=== PATIENT | male | born 1945 | race Two or more races ===

== ENCOUNTER 2017-01-20 10:57 | Inpatient (IN) | payer OTHER ==
--- NOTE | ~2017-01-20 | CN ---
Consultation Report [facility] [address] [place]. [address] NAME: YORDY LEONARD : 45 STATUS : ADM IN PAT#: [id number] AGE: 72 ADM/REG DATE : 01/20/17 MR#: [id number] REPORT SERV DATE: 01/20/17 DICTATED BY: DATE: REPORT STATUS : Draft TRANSCRIBED BY: MODL DATE: 01/20/17 CONSULTATION DATE OF CONSULTATION: 01/20/2017 REASON FOR CONSULTATION: CKD. HISTORY OF PRESENT ILLNESS: Mr. Leonard is a 72-year-old, [place] Citizen male, with a history of diabetes with neuropathy, no known retinopathy and duration per family is approximately six years, hypertension, who presented to [facility] with shortness of breath that was rather acute in onset prompting ER evaluation. He was found to be in CHF. He also then developed troponin elevation. They diuresed him and then transferred him to [facility] where he underwent heart catheterization today and was found to have multivessel coronary artery disease and needed bypass. On his arrival to [facility], his creatinine was 1.4, today is 1.5 pre cath and 1.4 again. We have been asked to see him in consultation. He does have proteinuria on his urinalysis, 100 mg/dL. His only urinary symptom is urinary hesitancy and urinary frequency. Currently, his breathing is better and he is chest pain free. PAST MEDICAL HISTORY: Coronary artery disease, hypertension, COPD, hyperlipidemia, diabetes x6 years with neuropathy. FAMILY MEDICAL HISTORY: No kidney disease. SOCIAL HISTORY: He is . Smokes a pack of cigarettes a day. No alcohol or illicit drug use. ALLERGIES: NONE. HOME MEDICATIONS: Include meloxicam, metformin, and atorvastatin. He is currently receiving fluids at 150 mL/hour x4 hours and he received a dose of azithromycin. 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 PHYSICAL EXAMINATION: VITAL SIGNS: Temp 97.7, blood pressure is 118/58, pulse 68, respiratory rate 19, and O2 saturation is 96% on 2 L. GENERAL: A pleasant, cooperative [place] Citizen male. He is awake, alert, in no acute distress. HEENT: Normocephalic and atraumatic. Conjunctivae clear. Sclerae anicteric. Oral mucosa is dry. NECK: Supple. I did not see any neck vein distention. No lymphadenopathy. LUNGS: Respirations are even and unlabored. He has diminished bases bilaterally. Consultation Report [address] [place]. [address] NAME: YORDY LEONARD : 45 STATUS : ADM IN PAT#: [id number] AGE: 72 ADM/REG DATE : 01/20/17 MR#: [id number] REPORT SERV DATE: 01/20/17 DICTATED BY: DATE: REPORT STATUS : Draft TRANSCRIBED BY: MODL DATE: 01/20/17 HEART: His heart rate is regular. I did not hear any murmur, rub, or gallop. ABDOMEN: Soft and nontender. Bowel sounds active. No masses. No hepatosplenomegaly. No bruits. No CVA tenderness. BACK: Within normal limits. EXTREMITIES: No unusual rashes or skin lesions. No edema. NEUROLOGIC: No focal deficits. PSYCHIATRIC: Mood and affect, pleasant appropriate. PERTINENT LABS AND X-RAYS: Sodium 141, potassium 3.9, chloride 103, CO2 of 26, BUN of 20, creatinine 1.4, calcium 8.9, glucose 109, magnesium 1.9, albumin 3.6. LFTs normal. Last troponin was up to 5.5, CPK of 368. Lipids; total cholesterol 150, LDL of 91, HDL of 48, triglycerides 55, and albumin of 3.2. Chest x-ray with a lung nodule in right upper lobe and Radiology reading it as a right upper lobe granuloma. Lactate 4.1. He had a CBC today with WBCs 9, H and H 12 and 40, platelets 260. ABG with a pH of 7.3, pCO2 of 30, pO2 of 92, bicarb is 22. His urinalysis was with 100 mg/dL of protein, and small amount of blood on dipstick. Under microscopic exam, he only had one red blood cells per high-power field. IMPRESSION: 1. Chronic kidney disease with proteinuria. 2. Myocardial infarction. 3. Coronary artery disease, multivessel in need of bypass. 4. Diabetes. 5. Hypertension. 6. Chronic obstructive pulmonary disease with ongoing tobacco use. PLAN/RECOMMENDATION: We will follow. He got hydration postcontrast. Metformin will be held. We will quantify urine and protein. Follow labs and urinary output. Avoid nephrotoxins. Would recommend Vas-Cath intraoperatively at time of bypass. We will follow along with you. Thank you for the consult. ADELA/SWETHA GLADYS Bell / [id number] CC: Karishma Medrano MARLAINE
--- NOTE | ~2017-01-20 | CN ---
Consultation Report [facility] [address] [place]. [address] NAME: YORDY SOLORIO : 45 STATUS : ADM IN PAT#: [id number] AGE: 72 ADM/REG DATE : 01/20/17 MR#: [id number] REPORT SERV DATE: 01/25/17 DICTATED BY: ATTILA GRIFFIN DATE: 01/25/17 REPORT STATUS : Draft TRANSCRIBED BY: MODL DATE: 01/25/17 INFECTIOUS DISEASE CONSULT DATE OF CONSULTATION: REASON FOR REFERRAL: Evaluation and treatment of possible tuberculosis. HISTORY OF PRESENT ILLNESS: The patient is a 72-year-old male who is originally from [place] but has lived in the [place] for many years. He has a history of diabetes mellitus and associated peripheral neuropathy. He has hyperlipidemia and a long history of tobacco abuse, in fact still smokes a half pack of cigarettes per day. He was at home with family, apparently doing well until 01/20 when he developed abrupt onset of shortness of breath and stated to his family "I cannot breathe." He was taken immediately to the emergency room where he was found to be very hypoxic, hypertensive with a blood pressure of 245/128. He was tachycardic. His chest x-ray was consistent with pulmonary edema. He showed evidence of an evolving myocardial infarction. It was noted also that he had an elevated white blood cell count along with the abnormal chest x-ray. The white count was 19,000 but with no bandemia. He had a normal procalcitonin but concern was raised for bacterial pneumonia. So he was started on Rocephin and azithromycin. He was transferred here to [facility] for cardiac cath and evaluation, which proved to show diffuse three-vessel disease. So was taken to surgery yesterday for coronary artery bypass grafting. He had that and is now recovering well from that. His chest x-ray cleared with diuresis. It was noted from the beginning that he had a calcified mass in the right upper lobe and because of that, a PPD was placed by Nephrology but it was not reassessed again until this morning, four days after placement and found to be positive at 15 mm of induration which I have confirmed on measuring it myself. He does not speak [place] well and there is no family present but per Dr. Donna Lomeli's excellent history and physical, the family who did speak [place] questioned closely about symptoms and he had no respiratory symptoms to suggest infection of any kind prior to this very abrupt onset of shortness of breath. No fevers, chills, night sweats, cough, hemoptysis, unexplained weight loss or anything that would suggest active tuberculosis. Whether he has been assessed for that or treated prophylactically in the past is unknown at this time since no family is present to interview. PAST MEDICAL HISTORY: Otherwise unknown or unremarkable. MEDICATIONS: The Rocephin and azithromycin he was started on were stopped. On the and , he received perioperative Ancef but is off antibiotics now. ALLERGIES: HE HAS NO KNOWN ANTIMICROBIAL ALLERGIES. SOCIAL HISTORY: He lives at home with a son and [id number]. He is . He does not work outside the home. Does smoke. No history of alcohol or substance abuse. FAMILY HISTORY: Noncontributory. Consultation Report [address] [place]. [address] NAME: YORDY SOLORIO : 45 STATUS : ADM IN [facility]#: [id number] AGE: 72 ADM/REG DATE : 01/20/17 MR#: [id number] REPORT SERV DATE: 01/25/17 DICTATED BY: ATTILA GRIFFIN DATE: 01/25/17 REPORT STATUS : Draft TRANSCRIBED BY: SWETHA DATE: 01/25/17 PHYSICAL EXAMINATION: GENERAL: Nontoxic, elderly, male in no acute distress. He wakes up, interacts, tends to nod everything. So I do not think he is really understanding much that he is asked. VITAL SIGNS: His temperature was normal at presentation at 98.5 and has been normal since then, 96.8 earlier this morning with a pulse of 58, respirations 14, blood pressure of 106/55, weight 74 kg. HEENT: Sclerae clear. No oral lesions. NECK: Without lymphadenopathy. LUNGS: Clear anteriorly. HEART: Regular rate and rhythm. Sternal incision is covered by surgical dressing and looks good. ABDOMEN: Soft, nontender. Positive bowel sounds. EXTREMITIES: Without clubbing, cyanosis, or edema. No skin lesions or rashes. LABORATORY DATA: His white blood cell count had decreased rapidly to normal, was 11.5 preoperatively yesterday, 16.3 today with a hematocrit of 32.4, platelets 153. Unremarkable differential. BUN and creatinine 21 and 1.4. Blood cultures taken at admission were negative. IMPRESSION: 1. 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 At this time, I feel this is old exposure/infection and he is showing no signs before admission or now of active tuberculosis. He does not need isolation. 2. Doubt any other infectious process is going on as well. I do not think his abnormal white count and chest x-ray at admission represented bacterial pneumonia but more likely all due to his cardiac disease. RECOMMENDATIONS: 1. No isolation necessary. 2. No antibiotics recommended. 3. Needs to be referred to the health department after his recovery from the CABG for prophylactic INH if that has never been done. 4. I will follow the patient with you. I appreciate very much your consulting on this patient. ALIYAH/SWETHA Attila Griffin M.D. / [id number] Consultation Report [address] [address] NAME: YORDY SOLORIO : 45 STATUS : ADM IN [facility]#: [id number] AGE: 72 ADM/REG DATE : 01/20/17 MR#: [id number] REPORT SERV DATE: 01/25/17 DICTATED BY: ATTILA GRIFFIN DATE: 01/25/17 REPORT STATUS : Draft TRANSCRIBED BY: SWETHA DATE: 01/25/17 CC: Karishma Medrano
--- NOTE | ~2017-01-20 | OP ---
Record Of Operation [facility] [address] [facility] [place]. [address] NAME: YORDY SOLORIO : 45 STATUS : ADM IN PAT#: [id number] AGE: 72 ADM/REG DATE : 01/20/17 MR#: [id number] REPORT SERV DATE: 01/25/17 DICTATED BY: CARLENE RUST DATE: 01/24/17 REPORT STATUS : Draft TRANSCRIBED BY: MODL DATE: 01/24/17 DATE OF PROCEDURE: 01/24/2017 PREOPERATIVE DIAGNOSES: 1. Coronary artery disease with non-ST elevation myocardial infarction. 2. Left carotid stenosis. 3. Chronic kidney disease stage III with acute worsening. 4. Hdc-prnjrsw-ntjwdwecp diabetes mellitus type 2. 5. Hypertension. 6. Hypercholesterolemia. 7. Tobacco abuse. 8. Recent respiratory failure. POSTOPERATIVE DIAGNOSES: 1. Coronary artery disease with non-ST elevation myocardial infarction. 2. Left carotid stenosis. 3. Chronic kidney disease stage III with acute worsening. 4. Sbq-xvvekba-osnbwbzry diabetes mellitus type 2. 5. Hypertension. 6. Hypercholesterolemia. 7. Tobacco abuse. 8. Recent respiratory failure. PROCEDURE PERFORMED: 1. Urgent coronary artery bypass grafting x5, left internal mammary artery placed to left anterior descending, reverse saphenous vein graft placed to the second diagonal, reverse saphenous vein graft placed to the third diagonal, reverse saphenous vein graft placed to the first obtuse marginal, reverse saphenous vein graft placed to the distal right coronary artery. 2. Left carotid endarterectomy using a saphenous vein angioplasty. 3. Endoscopic vein harvest, saphenous vein from bilateral thighs. 4. Transesophageal echocardiography. 5. Intraoperative EEG monitoring. SURGEON: Carlene Rust M.D. ASSISTANTS: Juan David Shahid, Dasia Cooper, and Tommy Bates. ANESTHESIA: General with Dr. Johnathan Chung M.D. SHEET TAKER: Lito Chow M.D. INDICATIONS: This is a 72-year-old male who has diabetes and long history of smoking. He had a recent episode of acute respiratory distress and was admitted to [facility] and placed on BiPAP. He was severely hypertensive. He was medically stabilized and underwent evaluation after his troponin levels were noted to be elevated. He underwent a Record Of Operation [facility] [address] [place]. [address] NAME: YORDY SOLORIO : 45 STATUS : ADM IN PAT#: [id number] AGE: 72 ADM/REG DATE : 01/20/17 MR#: [id number] REPORT SERV DATE: 01/25/17 DICTATED BY: CARLENE RUST DATE: 01/24/17 REPORT STATUS : Draft TRANSCRIBED BY: MODL DATE: 01/24/17 cardiac catheterization which demonstrated diffuse three-vessel coronary artery disease. The patient had elevated creatinine on admission and this later improved. After the patient was stabilized, we were asked to see the patient for possible urgent coronary artery bypass grafting secondary to severity of disease and recent non-ST elevation myocardial infraction. We discussed this operation with the patient family. After discussion of the operations, indications, risks, they wished to proceed. Preoperative discussion of about STS risk prediction was carried out. STS predicted risk of mortality of less than 5%, risk of morbidity and mortality in 15%. This was shared with the family. In addition, the patient underwent evaluation using carotid ultrasound. This demonstrated grade 3 left carotid stenosis with very high velocities. After examination of this study, we have felt that the patient should undergo prophylactic left carotid endarterectomy for suspected severe stenosis and this was discussed with the family also. FINDINGS AT OPERATION: 1. Cross-clamp time of 73 minutes, total pump time 89 minutes. 2. LAD was 1.5 mm moderately diseased vessel. A 2 mm LMA was anastomosed to it with good runoff. 3. The second diagonal was 1.5 mm mildly diseased. A 3.5 mm RSVG was anastomosed to it with good runoff. 4. The third diagonal was 1.75 mm and moderately diseased. A 3.5 mm RSVG was anastomosed to it with good runoff. 5. The first obtuse marginal was 1.75 mm and moderately diseased. A 3.5 mm RSVG was anastomosed to it with good runoff. 6. The distal right coronary artery was 2 mm and heavily diseased. A 3.5 mm RSVG was anastomosed to it with good runoff. 1-mm probe would pass through the bifurcation of the distal RCA into the PDA and posterolateral branch vessels. 7. The vein quality was good and all grafts had good Doppler signal at the end of the case. 8. Left carotid endarterectomy was performed. This vessel was heavily diseased with calcific plaque at the bifurcation extending into the proximal left internal carotid. After endarterectomy, a vein patch angioplasty was performed. An 8 mm shunt was used during the procedure. 9. Intraoperative EEG monitoring demonstrated no asymmetrical changes during the procedure. 10.STERLING at the end of the operation demonstrated improved ventricular function with no significant valvular pathology. Pathologic specimens include carotid endarterectomy plaque. DESCRIPTION OF PROCEDURE: The patient was brought to the operating suite. General anesthesia was induced and airway secured with an endotracheal tube. Lines secured by Anesthesia. Abreu catheter was placed. The patient's chest, abdomen, groin, and legs prepped with Hibiclens, ChloraPrep, along with the left neck. This were all draped in sterile fashion. STERLING probe was placed by Anesthesia and carried out in my attendance. The saphenous vein was harvested from bilateral thighs using endoscopic technique. Briefly, the vein was cut directly down upon through a 2 cm incision placed to the medial aspect of the right knee. Then, using VasoView trocars, the vessel was dissected from the surrounding Record Of Operation [address] [address] NAME: YORDY SOLORIO : 45 STATUS : ADM IN PAT#: [id number] AGE: 72 ADM/REG DATE : 01/20/17 MR#: [id number] REPORT SERV DATE: 01/25/17 DICTATED BY: CARLENE RUST DATE: 01/24/17 REPORT STATUS : Draft TRANSCRIBED BY: SWETHA DATE: 01/24/17 subcutaneous tissue and fat. The side branches were identified, ligated, and divided with cautery. Once adequate length of vein had been dissected, a counter incision made up in the groin. The vein was ligated, divided, and brought through the knee incision. Unfortunately, below the level of the knee, the vein was unusually small. Therefore, the left greater saphenous vein was harvested in an identical fashion. This vein was also of good quality, and when this vein was excised, the leg wounds were made hemostatic and closed in layers of absorbable suture and skin closed in subcuticular fashion. Simultaneously, a left carotid was performed. EEG monitoring were attached at beginning of the operation and used for the endarterectomy portion of the case. Oblique left neck incision made along the anterior border of the sternocleidomastoid and carried through the subcutaneous tissue and the platysma muscle. The sternocleidomastoid muscle was retracted laterally. The jugular vein was identified. This was also retracted laterally. The carotid sheath was then identified and this was opened from the common carotid through the bifurcation distally into the distal end up along the distal internal carotid artery. Heparin was administered by Anesthesia for the endarterectomy. At the level of bifurcation, we identified two branches of the external carotid artery including the superior thyroidal and pharyngeal arteries and these were controlled. The hypoglossal nerve was identified and this was preserved. Vessel loops were placed around the carotid vessels. The vessel loops were secured. Arteriotomy was made in the proximal common carotid artery extending through the bifurcations into the distal internal carotid artery. A #8 mm shunt was placed in the distal internal carotid and backflushed and placed in the common carotid artery and secured. Then endarterectomy was carried out. Endarterectomy plane was selected at the bifurcation and carried proximally to the limit of the arteriotomy where the plaque was transected. We then continued the same plane of dissection distally and an eversion type endarterectomy of the external carotid was performed. Once this was accomplished, we continued our plane of dissection distally to where the plaque feathered nicely past the level of significant disease in the distal internal carotid artery. There was one edge of this transition zone, it had a small lip to it and this was secured down to the adventitial layer of the distal internal carotid with a single 8-0 Prolene tacking suture. We then spent a significant amount of time clearing the new intima of all fibrin stranding and plaque. When this was completed, the external carotid was backflushed in the field and forward flushed with heparinized saline. Next, the vein from the left thigh was brought to the field in the more proximal portion, this vein graft was used for the vein patch angioplasty. The vein was transected and trimmed for the vein patch angioplasty. The vein was then sewn into place with a running suture of 7-0 Prolene. Near completion of sewing in the vein patch, the 8 mm [place] shunt was removed and the internal and common carotid vessels flushed in the field and then flushed with heparinized saline. We finished sewing in the patch, and then as the suture was being tied, flow was preferentially directed from the common carotid into the external carotid system for five heartbeats. Flow was then established to both external and internal carotids. Record Of Operation [facility] [address] [place]. [address] NAME: YORDY SOLORIO : 45 STATUS : ADM IN PAT#: [id number] AGE: 72 ADM/REG DATE : 01/20/17 MR#: [id number] REPORT SERV DATE: 01/25/17 DICTATED BY: CARLENE RUST DATE: 01/24/17 REPORT STATUS : Draft TRANSCRIBED BY: MODAyush DATE: 01/24/17 Meticulous hemostasis was then obtained. Intraoperative EEG monitoring demonstrated no asymmetrical changes during the procedure. Once hemostasis was assured, the wound was packed loosely with 4 x 4 gauze and tacked closed. We then turned our attention back toward the heart. Midline sternal incision made in the sternum with a saw. The left hemithorax was elevated and the endothoracic fascia. Full endothoracic fascia was incised. Side branch of the NEYMAR were clipped and divided. Once the NEYMAR was completely dissected, the patient was anticoagulated with heparin and chest tube placed the left pleural cavity. 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 The NEYMAR was clipped distally and divided. There was good flow through the NEYMAR and its pedicle was infiltrated with papaverine. Next, the Rudy retractor was placed in the pericardium from the innominate vein. The diaphragm was T'd and tacked to side of the chest wall. Cannulation pursestring sutures were placed and cannulation care routine manner. A retrograde cardioplegia cannula was placed in the coronary sinus. When all was in readiness, the patient was placed on cardiopulmonary bypass. The distal targets were marked out on the lung and heart as described in the findings. Then, a heart support was placed. The aorta was crossclamped and an initial dose cold blood cardioplegia solution was given in a combination of antegrade and retrograde fashion, and then in a retrograde manner following proximal anastomoses. Following the first dose of cardioplegia, the heart was positioned for the distal RCA graft. Arteriotomy was made. The vein graft was changed and anastomosed it with 7-0 Prolene. The vein graft was measured back to the right side of the ascending aorta where it was divided. We then positioned the heart for the obtuse marginal graft. Another arteriotomy was made in the vein graft to anastomosed it with 7-0 Prolene. This vein graft was then measured back to the left side of the ascending aorta where it was divided. Next, the proximal ends of the two vein grafts were anastomosed to 4.5 mm punch aortotomies with a 6-0 Prolene. Another dose of cardioplegia was given and heart was positioned for the second diagonal graft. Arteriotomy was made and the vein graft anastomosed it with 7-0 Prolene. This vein graft was measured back to the left side of the ascending aorta where it was divided. We then positioned the heart for the third diagonal graft. Another arteriotomy was made in the vein graft to anastomose it with 7-0 Prolene. This vein graft was measured back to the left side of the ascending aorta root where it was divided. Next, proximal ends of these two vein grafts were anastomosed to 4.5 mm punch aortotomies with 6-0 Prolene. Another dose of cardioplegia was given and the heart was positioned for the LAD graft. Warming was begun. Arteriotomy was made in the mid LAD. The NEYMAR was brought out of the left chest through a notch in the pericardium over the pulmonary artery. The NEYMAR was opened and anastomosed to the LAD with running suture of 8-0 Prolene. The endothoracic fascia was tacked to epicardium. The patient was placed in Trendelenburg and final dose of warm blood cardioplegia was given Record Of Operation [facility] [address] [place]. [address] NAME: YORDY SOLORIO : 45 STATUS : ADM IN [facility]#: [id number] AGE: 72 ADM/REG DATE : 01/20/17 MR#: [id number] REPORT SERV DATE: 01/25/17 DICTATED BY: CARLENE RUST DATE: 01/24/17 REPORT STATUS : Draft TRANSCRIBED BY: MODL DATE: 01/24/17 in a retrograde fashion. Ventricular and atrial pacing wires were placed. Following the last dose cardioplegia and deairing of the aorta, the aortic cross clamp was removed. The distal and proximal anastomoses were inspected and made hemostatic. Doppler demonstrated good flow through the grafts. The heart resumed a slow sinus rhythm and was paced atrially at a rate of 80. Ventilation was begun. When the heart demonstrated good contractility, it was allowed to fill and eject. When deairing was completed, the patient was taken out of Trendelenburg and the ascending aortic vent removed and these pursestring sutures tied and reinforced. The patient was weaned from cardiopulmonary bypass with minimal inotropic support. The venous cannulas were removed and these pursestring sutures tied. STERLING examination demonstrated good ventricular function with no significant valvular pathology. Protamine was administered by Anesthesia, and following a period of hemodynamic stability, the aortic cannula was removed and these pursestring sutures tied and reinforced. The patient continued do well and chest irrigated copiously with saline. Meticulous hemostasis was obtained. Hemasorb was placed along the cut edge of the sternum. Once hemostasis was assured, the pericardium was draped over the anterior surface of the heart and tacked into position. Doppler demonstrated good flow through the grafts following protamine administration. Then, chest tubes were placed and the sternum reapproximated with 8 sternal wires. The clavipectoral fascia and linea alba were closed with #1 Stratafix and subcutaneous tissue closed with 2-0 Stratafix. The skin was closed in subcuticular fashion. The suture in the left neck incision was divided and this wound was irrigated and Doppler demonstrated good flow, continued in the internal carotid artery on this side. Then, the deep cervical fascia was reapproximated over the carotid system. The platysma muscle was reapproximated and the subcutaneous tissue. The skin was closed in subcuticular fashion. The patient tolerated the procedure well. There were no complications. Sponge and needle counts were correct. DISPOSITION: The patient left intubated and sedated and transported to the intensive care unit in stable condition. LUIS/SWETHA Carlene Rust M.D. / [id number] CC: Nicole Rosales M.D. Record Of Operation [address] [address] NAME: OSMINYORDY Mathews : 45 STATUS : ADM IN [facility]#: [id number] AGE: 72 ADM/REG DATE : 01/20/17 MR#: [id number] REPORT SERV DATE: 01/25/17 DICTATED BY: CARLENE RUST DATE: 01/24/17 REPORT STATUS : Draft TRANSCRIBED BY: SWETHA DATE: 01/24/17 ALISHA MORENO M.D.
--- NOTE | ~2017-01-20 | DS ---
Discharge Summary [facility] [address] [place]. [address] NAME: YORDY SOLORIO : 45 STATUS : DIS IN [facility]#: [id number] AGE: 72 ADM/REG DATE : 01/20/17 MR#: [id number] REPORT SERV DATE: 02/01/17 DICTATED BY: NAKUL BELL DATE: 02/01/17 REPORT STATUS : Draft TRANSCRIBED BY: MODL DATE: 02/01/17 ADMISSION DATE: 01/20/2017 DISCHARGE DATE: 01/31/2017 Date admission, initially 01/20/2017 at [facility], transferred on 01/21/2017. DISCHARGE DIAGNOSES: 1. Acute myocardial infarction requiring CABG. 2. Acute respiratory distress with hypoxia secondary to myocardial infarction. 3. Acute flash pulmonary edema secondary to myocardial infarction. 4. Hypertension. 5. Elevated lactate. 6. Diabetes type 2. 7. Active smoking history. 8. Leukocytosis. 9. Proteinuria. 10.Possible chronic obstructive pulmonary disease. 11.Urinary retention and inactive tuberculosis. CONSULTATIONS: CT Surgery for CABG, Dr. Rust. PROCEDURES: Urgent coronary bypass grafting x5, left carotid endarterectomy using saphenous vein. ADDITIONAL CONSULTATIONS: ID for possible TB. DISCHARGE FOLLOWUP: CT Surgery, Health Department, PCP, Cardiology. DISCHARGE MEDICATIONS: Amlodipine 10 mg one tab p.o. daily, aspirin 81 mg one tab p.o. daily, atorvastatin 40 mg one tab p.o. q.h.s., Coreg 3.125 mg one tab p.o. b.i.d., Plavix 75 mg one tab p.o. daily, guaifenesin over the counter as needed for cough, lisinopril 5 mg one tab p.o. daily, multivitamin over the counter, Protonix 20 mg one tab p.o. before breakfast, Senokot two tabs p.o. daily, metformin 1000 mg one tab p.o. b.i.d., [place] 10/325 mg one tab p.o. as needed half to one tab p.o. HOSPITAL COURSE: Please see H and P for complete details of HPI, interim summary by Dr. Sammy Prescott for interim course. Briefly, this is a 72-year-old male admitted for shortness of breath, acute flash pulmonary edema, chest tightness, hypoxia, elevated lactate with history of smoking, diabetes non-insulin dependent, who presented at [facility] with concerns for coronary artery disease, evaluated by Dr. Chow, arranged for transport to [facility], at which time, the patient was noted to have multi-vessel disease. The patient was evaluated by Dr. Rust and underwent five-vessel urgent coronary bypass grafting, left carotid endarterectomy, STERLING, endoscopic vein harvest for NSTEMI. The patient tolerated the procedure well. Was able to be weaned off oxygen. Was encouraged smoking cessation. Postoperatively, the patient did have mild urinary retention, which did resolve after retrial with Abreu and was able to be discontinued without Abreu. The patient has had Discharge Summary [address] [place]. [address] NAME: YORDY SOLORIO : 45 STATUS : DIS IN PAT#: [id number] AGE: 72 ADM/REG DATE : 01/20/17 MR#: [id number] REPORT SERV DATE: 02/01/17 DICTATED BY: NAKUL BELL DATE: 02/01/17 REPORT STATUS : Draft TRANSCRIBED BY: MODL DATE: 02/01/17 transient leukocytosis throughout hospital stay, but has continued to improve prior to discharge. Will need to have followup for this. The patient was initiated on beta-eduarda, AZIZA inhibitor, aspirin, statin, Plavix and also underwent diabetic education and will need close followup for these. Prior to discharge, the patient was ambulating with standby assist. Had very strong and close family support. Eager to return home. He will follow up with his PCP for blood pressure, diabetes, hyperlipidemia, smoking. We will need to have full workup for COPD once recovered from coronary disease and procedure. All questions were answered with the patient at bedside. DDN/MODL Nakul Bell MD / [id number] CC: MD ALISHA Myers
--- NOTE | ~2017-01-20 | CN ---
Consultation Report [facility] [address] [place]. [address] NAME: YORDY SOLORIO : 45 STATUS : ADM IN PAT#: [id number] AGE: 72 ADM/REG DATE : 01/20/17 MR#: [id number] REPORT SERV DATE: 01/21/17 DICTATED BY: SERGEY GAMEZ DATE: 01/21/17 REPORT STATUS : Draft TRANSCRIBED BY: MODL DATE: 01/21/17 CONSULTATION DATE OF CONSULTATION: 01/20/2017 REASON FOR CONSULTATION: Three-vessel coronary artery disease, consideration for coronary artery bypass grafting at this admission. CHIEF COMPLAINT: "I could not get my breath after I went to bed Tuesday night." HISTORY OF PRESENT ILLNESS: This is a pleasant 72-year-old gentleman of ethnicity, who was at home last Tuesday night preparing to fall asleep. He had sudden onset of severe dyspnea and shortness of breath, and this was accompanied by some sweating. He denies any syncope or near syncope. He denies any wheezing. He denies any cough. He had no history of recent illness. He denies having any prior cardiac history. He was taken to the emergency department and prior to that, given two aspirins by his granddaughter. At the emergency department, he was found to have an oxygen saturation of 72%, chest x-ray consistent with pulmonary edema, and elevated BNP as well as abnormal EKG and elevated troponin I. He was treated with Lasix, nitroglycerin paste, and was given Solu Medrol 125 mg IV, was also treated with BiPAP. He had improvement in his symptoms. He was transferred to [facility] and underwent Cardiology evaluation. This culminated in coronary arteriogram yesterday afternoon, which showed flow-limiting three-vessel coronary artery disease. Subsequent echocardiogram did not show any valvulopathy, did indicate reduced left ventricular function with ejection fraction of 45%. We were asked to see for urgent coronary artery bypass grafting. PRIOR MEDICAL HISTORY: 1. Significant for type 2 diabetes mellitus, non-insulin dependent. 2. Hyperlipidemia. 3. Cataracts. 4. Diabetic neuropathy. 5. Tobacco abuse. 6. Remote history of alcohol use. PRIOR SURGICAL HISTORY: Significant only for cataract excision. ALLERGIES: NONE NOTED. MEDICATIONS AT HOME: Include atorvastatin 20 mg p.o. at bedtime, meloxicam 7.5 mg daily, and metformin 1000 mg p.o. b.i.d. FAMILY HISTORY: Significant for diabetes mellitus. No history of coronary disease. Consultation Report [place] [id number] [facility] [place]. [address] NAME: YORDY SOLORIO : 45 STATUS : ADM IN PAT#: [id number] AGE: 72 ADM/REG DATE : 01/20/17 MR#: [id number] REPORT SERV DATE: 01/21/17 DICTATED BY: SERGEY GAMEZ DATE: 01/21/17 REPORT STATUS : Draft TRANSCRIBED BY: SWETHA DATE: 01/21/17 SOCIAL HISTORY: He is , has three sons and one daughter, who are adults, he is retired from working at [employer] as a [employer] in [place]. He tells me, he has smoked since age [age] up to two packs per day, now about twelve cigarettes per day. He has a remote history of alcohol use, but none for the last ten years. REVIEW OF SYSTEMS: Complete review of systems was obtained from the patient via his grandson, who served as an wholesaler. GENERAL: He denies any recent weight change, fevers, chills, night sweats, or malaise. ENT: Positive for diminished auditory acuity in the left ear and occasional tinnitus, cataracts, upper and lower dentures. RESPIRATORY: Positive for occasional dry nonproductive cough, which he attributes to smoking. Negative for wheezing. Negative for hemoptysis. CV: Negative for paroxysmal nocturnal dyspnea, chest pain, palpitations, or heart murmur. Denies any prior history of heart problems or chest pain. GI: Negative. : Negative. ENDOCRINE: Positive for his diabetes mellitus, treated with metformin. HEME/ONC: Negative for tendency towards easy bruising or free bleeding. Negative for blood clots. Negative for cancer. MUSCULOSKELETAL: Negative. INTEGUMENTARY: Negative for lesions, masses, rashes, or nonhealing sores. LYMPHATIC: Negative for any swollen lymph nodes or lower extremity edema. Otherwise, negative or as above. NEURO: No history of stroke or TIA PHYSICAL EXAMINATION: GENERAL: He is a pleasant elderly gentleman, in no acute distress. His height is 162.56 cm. Weight 71.29 kg. VITAL SIGNS: Blood pressure 133/60, temperature 97.3, pulse 62 regular, respirations 18 regular and unlabored, saturation is 99% on 3 L nasal cannula. HEENT: Normocephalic, atraumatic. Full head of hair. Pupils equal, round, reactive to light and accommodation, sclerae clear, conjunctivae pink. Oral and buccal mucosa pink and moist. No lesions, masses. He has upper and lower dentures in place. Mallampati class 3 airway. NECK: Supple. No restricted range of motion, bilateral carotid bruits that are easily heard. No neck vein distention. No adenopathy. CHEST: Clear to auscultation, no use of accessory muscles, no chest wall tenderness or deformity. BREASTS: Not examined. CV: Regular rate and rhythm without murmur or rub. He has palpable symmetric central and peripheral pulses, no clubbing, cyanosis, or edema. No lower extremity varicosities. ABDOMEN: Soft, obese, nontender with normoactive bowel sounds. No hepatosplenomegaly. /RECTAL: Declined. MUSCULOSKELETAL: No kyphoscoliosis. No asymmetry. Consultation Report [address] [place]. [address] NAME: YORDY SOLORIO : 45 STATUS : ADM IN [facility]#: [id number] AGE: 72 ADM/REG DATE : 01/20/17 MR#: [id number] REPORT SERV DATE: 01/21/17 DICTATED BY: SERGEY GAMEZ DATE: 01/21/17 REPORT STATUS : Draft TRANSCRIBED BY: SWETHA DATE: 01/21/17 NEUROLOGIC: He is alert and oriented to day, date, place, and situation and president, no tremors, no abnormal movements, no difficulty with muscle strength or ambulation. Diminished sensation in both feet. DATA: EKG showing sinus rhythm, left atrial enlargement and ST-T wave changes in the anterior and lateral leads. Urinalysis positive for hematuria and glucosuria at [facility]. Hemoglobin A1c elevated at 7.2. Echocardiogram showing ejection fraction of 45%, no valvulopathy. His coronary arteriogram showing 3-vessel flow-limiting coronary artery disease with total occlusion of the distal right coronary artery, LVEDP was 10. Carotid ultrasound showing category 2 disease in the right internal carotid artery, category 3 disease, that is 70% to 99% stenosis by velocities in the left internal carotid artery. LABORATORIES: His lipid panel unremarkable. Electrolytes, sodium 140, potassium 3.6, chloride 103, CO2 of 27, BUN 27, creatinine 1.3, glucose 133. CBC elevated WBCs at 17.8, hemoglobin 11.8 g, hematocrit 34.8%, platelets 248,000. IMPRESSION: 1. Three-vessel flow-limiting coronary artery disease in a 72-year-old gentleman with mildly diminished left ventricular function and recent [id number] myocardial infarction. 2. Significant carotid artery disease with no history of stroke, transient ischemic attack, or other referable symptoms. 3. Chronic kidney disease versus acute kidney injury, followed currently by Nephrology. 4. Hyperlipidemia, treated. 5. Hypertension, treated. 6. Diabetic neuropathy. PLAN: 1. I talked with the patient today with his grandson serving as an wholesaler as the patient speaks very little [place], but understands some. I talked with the patient and his family about possible coronary artery bypass grafting, usual perioperative course, indications, benefits, and risks. Serious risks include but are not limited to, things such as bleeding, need for blood or blood product transfusion and their attendant risks, damage to the kidneys including kidney failure and dialysis, infection including deep sternal infection, mediastinitis, damage to the liver or the lungs, heart attack, stroke, abnormal heart rhythm, and even . 2. We talked also about possible left carotid endarterectomy given his carotid stenosis. We talked about the usual perioperative course, and risks including risk of bleeding, pain, difficulty swallowing, and stroke. Using Society of thoracic Surgeons database, risks related to urgent coronary artery bypass grafting were calculated at risk of mortality 2.86%, morbidity or mortality 27.99%. This is discussed with the patient and his family today. 3. The patient will be seen over the weekend by Dr. Rust, and tentative plans for coronary artery bypass grafting early next week are entertained. We appreciate very much the opportunity to participate in this gentleman's care. Consultation Report [place] [address] [place]. [address] NAME: YORDY SOLORIO : 45 STATUS : ADM IN [facility]#: [id number] AGE: 72 ADM/REG DATE : 01/20/17 MR#: [id number] REPORT SERV DATE: 01/21/17 DICTATED BY: SERGEY GAMEZ DATE: 01/21/17 REPORT STATUS : Draft TRANSCRIBED BY: MODL DATE: 01/21/17 MSL/MODL Sergey Gamez N.P. / [id number] CC: Karishma Medrano
[~2017-01-20 10:57] MED LIST: GLUCOPHAGE1000 MG PO; LIPITOR20; MOBIC7.5 PO
[2017-01-20 14:25] LABS: A/G RATIO 0.9 (0.7-1.9); ALBUMIN 3.6 G/DL (3.5-5.0); ALKALINE PHOSPHATASE 105 U/L (45-117); BUN (BLOOD UREA NITROGEN) 20 MG/DL (6-23); CALCIUM, SERUM 8.9 MG/DL (8.5-10.4); CHLORIDE, SERUM 103 MMOL/L (96-112); CO2 (CARBON DIOXIDE) 26 MMOL/L (24-34); CPK 368 U/L (0-200); GFR AFRICAN AMERICAN 58 ML/MIN (>=60); GFR NON AFRICAN AMERICAN 50 ML/MIN (>=60); GLOBULIN 3.9 G/DL (2.5-4.1); GLUCOSE, SERUM 109 MG/DL (60-99); POTASSIUM, SERUM 3.9 MMOL/L (3.5-5.3); SGOT(AST) 47 U/L (5-40); SGPT(ALT) 18 U/L (5-65); SODIUM, SERUM 141 MMOL/L (135-148); TOTAL BILIRUBIN 0.4 MG/DL (0-1.2); TOTAL PROTEIN 7.5 G/DL (6.0-8.5)
[2017-01-20 14:26] LABS: TROPONIN I 5.54 NG/ML (<0.05)
[2017-01-20 14:28] LABS: CK-MB 29.6 NG/ML; FREE T4 0.79 NG/DL (0.76-1.46)
[2017-01-20 20:11] LABS: CREATININE (RANDOM URINE) 19.9 MG/DL; CREATININE, URINE 19.9 MG/DL; MICROALBUMIN, RANDOM URINE 2.2 MG/DL
[2017-01-21 05:38] LABS: BASOPHILS 0.1 %; BASOPHILS ABSOLUTE 0.01 10/3/uL (0.0-0.16); EOSINOPHILS 0.1 %; EOSINOPHILS ABSOLUTE 0.01 10/3/uL (0.0-0.53); HEMOGLOBIN 11.8 g/dL (13.6-17.8); IMMATURE GRANULOCYTES 0.3 %; IMMATURE GRANULOCYTES ABSOLUTE 0.06 10/3/uL (0.0-0.11); LYMPHOCYTES 14.7 %; LYMPHOCYTES ABSOLUTE 2.62 10/3/uL (0.67-4.30); MEAN CORPUSCULAR HEMOGLOB 31.5 pg (26.0-34.0); MEAN CORPUSCULAR VOLUME 92.8 fL (80-100); MEAN PLATELET VOLUME 10.2 fL (9.2-13.0); MONOCYTES ABSOLUTE 1.07 10/3/uL (0.21-1.20); NEUTROPHILS 78.8 %; NEUTROPHILS ABSOLUTE 14.02 10/3/uL (2.02-8.40); PLATELET COUNT 248 10/3/uL (150-400); RBC DISTRIBUTION WIDTH 14.9 % (12.0-16.0); RED CELL COUNT 3.75 10/6/uL (4.7-6.1)
[2017-01-21 05:43] LABS: HEMATOCRIT 34.8 % (40.0-51.0); MANUAL DIFF NO %; MEAN CORPUS HGB CONC 33.9 g/dL (32.0-36.0); WHITE BLOOD CELLS 17.8 10/3/uL (4.5-10.5)
[2017-01-21 05:55] LABS: A/G RATIO 0.9 (0.7-1.9); ALBUMIN 3.1 G/DL (3.5-5.0); CALCIUM, SERUM 8.4 MG/DL (8.5-10.4); CHLORIDE, SERUM 103 MMOL/L (96-112); CO2 (CARBON DIOXIDE) 27 MMOL/L (24-34); GFR AFRICAN AMERICAN 63 ML/MIN (>=60); GFR NON AFRICAN AMERICAN 55 ML/MIN (>=60); GLOBULIN 3.4 G/DL (2.5-4.1); PHOSPHORUS, SERUM 3.1 MG/DL (2.5-4.5); POTASSIUM, SERUM 3.6 MMOL/L (3.5-5.3); SGOT(AST) 34 U/L (5-40); SGPT(ALT) 16 U/L (5-65); SODIUM, SERUM 140 MMOL/L (135-148); TOTAL BILIRUBIN 0.5 MG/DL (0-1.2); TOTAL PROTEIN 6.5 G/DL (6.0-8.5)
[2017-01-21 05:59] LABS: ALKALINE PHOSPHATASE 80 U/L (45-117); BUN (BLOOD UREA NITROGEN) 27 MG/DL (6-23); GLUCOSE, SERUM 133 MG/DL (60-99)
[2017-01-21 06:06] LABS: T PROTEIN (ELECT)(NOT OR 6.3 G/DL (6.0-8.5)
[2017-01-21 06:21] LABS: INTACT PTH (ICMA) 217.3 PG/ML (10.0-65.0)
[2017-01-21 10:22] LABS: A/G 1.48 RATIO (0.9-2.10); ALB RELATIVE % 59.7 % (60.0-89.0); ALBUMIN (ELECTRO) 3.76 GM/DL (3.2-5.5); ALPHA 1 (ELECTRO) 0.21 GM/DL (0.1-0.4); ALPHA 1 RELAT % (NOT ORD) 3.3 % (1.0-4.0); ALPHA 2 (ELECTRO) 0.67 GM/DL (0.5-1.10); ALPHA 2 RELAT % 10.6 % (4.5-26.0); BETA GLOBULIN (SPE) 0.62 GM/DL (0.60-1.30); BETA RELATIVE % 9.9 % (9.0-22.0); GAMMA GLOBULIN (SPE) 1.04 G/DL (0.70-1.60); GAMMA RELAT % 16.5 % (6.0-22.0)
[2017-01-22 03:25] LABS: BASOPHILS 0.2 %; BASOPHILS ABSOLUTE 0.03 10/3/uL (0.0-0.16); EOSINOPHILS ABSOLUTE 0.12 10/3/uL (0.0-0.53); HEMATOCRIT 36.9 % (40.0-51.0); HEMOGLOBIN 12.6 g/dL (13.6-17.8); IMMATURE GRANULOCYTES 0.2 %; IMMATURE GRANULOCYTES ABSOLUTE 0.03 10/3/uL (0.0-0.11); LYMPHOCYTES 35.5 %; LYMPHOCYTES ABSOLUTE 4.28 10/3/uL (0.67-4.30); MEAN CORPUS HGB CONC 34.1 g/dL (32.0-36.0); MEAN CORPUSCULAR HEMOGLOB 31.6 pg (26.0-34.0); MEAN CORPUSCULAR VOLUME 92.5 fL (80-100); MEAN PLATELET VOLUME 10.3 fL (9.2-13.0); MONOCYTES 7.5 %; MONOCYTES ABSOLUTE 0.91 10/3/uL (0.21-1.20); NEUTROPHILS 55.6 %; NEUTROPHILS ABSOLUTE 6.69 10/3/uL (2.02-8.40); PLATELET COUNT 267 10/3/uL (150-400); RBC DISTRIBUTION WIDTH 14.6 % (12.0-16.0); RED CELL COUNT 3.99 10/6/uL (4.7-6.1); WHITE BLOOD CELLS 12.1 10/3/uL (4.5-10.5)
[2017-01-22 03:26] LABS: MANUAL DIFF NO %
[2017-01-22 03:40] LABS: BUN (BLOOD UREA NITROGEN) 27 MG/DL (6-23); CALCIUM, SERUM 8.5 MG/DL (8.5-10.4); CHLORIDE, SERUM 100 MMOL/L (96-112); CO2 (CARBON DIOXIDE) 32 MMOL/L (24-34); CREATININE 1.34 MG/DL (0.70-1.30); GFR AFRICAN AMERICAN 61 ML/MIN (>=60); GFR NON AFRICAN AMERICAN 53 ML/MIN (>=60); GLUCOSE, SERUM 143 MG/DL (60-99); POTASSIUM, SERUM 3.5 MMOL/L (3.5-5.3); SODIUM, SERUM 139 MMOL/L (135-148)
[2017-01-23 01:06] LABS: BASOPHILS 0.3 %; BASOPHILS ABSOLUTE 0.04 10/3/uL (0.0-0.16); EOSINOPHILS ABSOLUTE 0.23 10/3/uL (0.0-0.53); HEMATOCRIT 39.8 % (40.0-51.0); HEMOGLOBIN 13.8 g/dL (13.6-17.8); IMMATURE GRANULOCYTES 0.3 %; IMMATURE GRANULOCYTES ABSOLUTE 0.03 10/3/uL (0.0-0.11); LYMPHOCYTES 34.4 %; LYMPHOCYTES ABSOLUTE 3.93 10/3/uL (0.67-4.30); MEAN CORPUS HGB CONC 34.7 g/dL (32.0-36.0); MEAN CORPUSCULAR HEMOGLOB 31.7 pg (26.0-34.0); MEAN CORPUSCULAR VOLUME 91.5 fL (80-100); MONOCYTES 8.3 %; MONOCYTES ABSOLUTE 0.95 10/3/uL (0.21-1.20); NEUTROPHILS 54.7 %; NEUTROPHILS ABSOLUTE 6.25 10/3/uL (2.02-8.40); PLATELET COUNT 290 10/3/uL (150-400); RBC DISTRIBUTION WIDTH 13.8 % (12.0-16.0); RED CELL COUNT 4.35 10/6/uL (4.7-6.1); WHITE BLOOD CELLS 11.4 10/3/uL (4.5-10.5)
[2017-01-23 01:12] LABS: MANUAL DIFF NO %
[2017-01-23 01:24] LABS: CALCIUM, SERUM 8.7 MG/DL (8.5-10.4); CHLORIDE, SERUM 96 MMOL/L (96-112); CO2 (CARBON DIOXIDE) 31 MMOL/L (24-34); CREATININE 1.25 MG/DL (0.70-1.30); GFR AFRICAN AMERICAN 66 ML/MIN (>=60); GFR NON AFRICAN AMERICAN 57 ML/MIN (>=60); GLUCOSE, SERUM 145 MG/DL (60-99); POTASSIUM, SERUM 3.2 MMOL/L (3.5-5.3); SODIUM, SERUM 136 MMOL/L (135-148)
[2017-01-23 01:30] LABS: BUN (BLOOD UREA NITROGEN) 22 MG/DL (6-23)
[2017-01-23 17:44] LABS: ASCORBIC ACID (UR NOT ORDER) NEG (NEG); BILIRUBIN, URINE NEGATIVE (NEG); KETONE, URINE NEGATIVE (NEG); LEUKOCYTE ESTERASE(NOT OR NEG (NEG); WBC (NOT ORDERED) (RFLEX) 1 (0-5)
[2017-01-24 03:55] LABS: BASOPHILS 0.2 %; BASOPHILS ABSOLUTE 0.02 10/3/uL (0.0-0.16); EOSINOPHILS 2.4 %; EOSINOPHILS ABSOLUTE 0.27 10/3/uL (0.0-0.53); HEMATOCRIT 39.8 % (40.0-51.0); IMMATURE GRANULOCYTES 0.3 %; IMMATURE GRANULOCYTES ABSOLUTE 0.03 10/3/uL (0.0-0.11); LYMPHOCYTES ABSOLUTE 3.56 10/3/uL (0.67-4.30); MEAN CORPUS HGB CONC 35.2 g/dL (32.0-36.0); MEAN CORPUSCULAR HEMOGLOB 32.3 pg (26.0-34.0); MEAN CORPUSCULAR VOLUME 91.7 fL (80-100); MEAN PLATELET VOLUME 9.8 fL (9.2-13.0); MONOCYTES 9.1 %; MONOCYTES ABSOLUTE 1.04 10/3/uL (0.21-1.20); NEUTROPHILS ABSOLUTE 6.56 10/3/uL (2.02-8.40); PLATELET COUNT 282 10/3/uL (150-400); RBC DISTRIBUTION WIDTH 13.8 % (12.0-16.0); RED CELL COUNT 4.34 10/6/uL (4.7-6.1); WHITE BLOOD CELLS 11.5 10/3/uL (4.5-10.5)
[2017-01-24 03:56] LABS: MANUAL DIFF NO %
[2017-01-24 04:01] LABS: INTERNATIONAL NORMAL RATI 1.1 UNITS (-); PROTIME (NOT ORD) 14.2 SEC (12.0-14.5)
[2017-01-24 04:02] LABS: PARTIAL THROMBO TIME 105.1 SEC (22.5-37.2)
[2017-01-24 04:05] LABS: A/G RATIO 0.9 (0.7-1.9); ALBUMIN 3.5 G/DL (3.5-5.0); BUN (BLOOD UREA NITROGEN) 23 MG/DL (6-23); CALCIUM, SERUM 8.8 MG/DL (8.5-10.4); CHLORIDE, SERUM 100 MMOL/L (96-112); CO2 (CARBON DIOXIDE) 28 MMOL/L (24-34); CREATININE 1.27 MG/DL (0.70-1.30); GFR AFRICAN AMERICAN 65 ML/MIN (>=60); GFR NON AFRICAN AMERICAN 56 ML/MIN (>=60); GLOBULIN 3.8 G/DL (2.5-4.1); GLUCOSE, SERUM 153 MG/DL (60-99); POTASSIUM, SERUM 3.8 MMOL/L (3.5-5.3); SGOT(AST) 29 U/L (5-40); SGPT(ALT) 34 U/L (5-65); SODIUM, SERUM 138 MMOL/L (135-148); TOTAL PROTEIN 7.3 G/DL (6.0-8.5)
[2017-01-24 04:07] LABS: ALKALINE PHOSPHATASE 96 U/L (45-117); TOTAL BILIRUBIN 1.1 MG/DL (0-1.2)
[2017-01-24 20:15] LABS: PLATELET COUNT 179 10/3/uL (150-400)
[2017-01-24 20:19] LABS: BUN (BLOOD UREA NITROGEN) 22 MG/DL (6-23); CALCIUM, SERUM 8.6 MG/DL (8.5-10.4); CHLORIDE, SERUM 103 MMOL/L (96-112); CO2 (CARBON DIOXIDE) 24 MMOL/L (24-34); CREATININE 1.48 MG/DL (0.70-1.30); GFR AFRICAN AMERICAN 54 ML/MIN (>=60); GFR NON AFRICAN AMERICAN 47 ML/MIN (>=60); POTASSIUM, SERUM 4.1 MMOL/L (3.5-5.3); SODIUM, SERUM 138 MMOL/L (135-148)
[2017-01-24 20:20] LABS: GLUCOSE, SERUM 194 MG/DL (60-99)
[2017-01-24 20:23] LABS: INTERNATIONAL NORMAL RATI 1.6 UNITS (-); PARTIAL THROMBO TIME 40.8 SEC (22.5-37.2); PROTIME (NOT ORD) 18.9 SEC (12.0-14.5)
[2017-01-25 00:38] LABS: HEMOGLOBIN 11.1 g/dL (13.6-17.8)
[2017-01-25 00:47] LABS: POTASSIUM, SERUM 3.6 MMOL/L (3.5-5.3)
[2017-01-25 04:33] LABS: BASOPHILS 0.1 %; BASOPHILS ABSOLUTE 0.01 10/3/uL (0.0-0.16); EOSINOPHILS 0.1 %; EOSINOPHILS ABSOLUTE 0.01 10/3/uL (0.0-0.53); HEMATOCRIT 32.4 % (40.0-51.0); HEMOGLOBIN 11.2 g/dL (13.6-17.8); IMMATURE GRANULOCYTES 0.4 %; IMMATURE GRANULOCYTES ABSOLUTE 0.06 10/3/uL (0.0-0.11); LYMPHOCYTES 6.4 %; LYMPHOCYTES ABSOLUTE 1.04 10/3/uL (0.67-4.30); MEAN CORPUS HGB CONC 34.6 g/dL (32.0-36.0); MEAN CORPUSCULAR HEMOGLOB 31.7 pg (26.0-34.0); MEAN CORPUSCULAR VOLUME 91.8 fL (80-100); MONOCYTES 4.4 %; MONOCYTES ABSOLUTE 0.71 10/3/uL (0.21-1.20); NEUTROPHILS 88.6 %; NEUTROPHILS ABSOLUTE 14.43 10/3/uL (2.02-8.40); PLATELET COUNT 153 10/3/uL (150-400); RBC DISTRIBUTION WIDTH 14.1 % (12.0-16.0); RED CELL COUNT 3.53 10/6/uL (4.7-6.1); WHITE BLOOD CELLS 16.3 10/3/uL (4.5-10.5)
[2017-01-25 04:34] LABS: MANUAL DIFF NO %
[2017-01-25 04:49] LABS: GLUCOSE, SERUM 88 MG/DL (60-99); POTASSIUM, SERUM 4.1 MMOL/L (3.5-5.3)
[2017-01-25 06:44] LABS: CHLORIDE, SERUM 113 MMOL/L (96-112)
[2017-01-25 06:50] LABS: BUN (BLOOD UREA NITROGEN) 21 MG/DL (6-23); CALCIUM, SERUM 8.6 MG/DL (8.5-10.4); CO2 (CARBON DIOXIDE) 22 MMOL/L (24-34); GFR AFRICAN AMERICAN 58 ML/MIN (>=60); GFR NON AFRICAN AMERICAN 50 ML/MIN (>=60)
[2017-01-25 06:55] LABS: SODIUM, SERUM 145 MMOL/L (135-148)
[2017-01-25 12:46] LABS: BE (BASE EXCESS) -2.9 MEQ/L (0 +/- 2.5); INSTRUMENT SERIAL # 11843; PCO2 (CO2 TENSION) 34 MMHG (35-45); PO2 (O2 TENSION) 380 MMHG (79-93); pH 7.42 (7.37-7.43)
[2017-01-25 12:47] LABS: CARBOXYHEMOGLOBIN 0.2 % (0-3); HEMOBLOGIN CONTENT 9.8 G/DL (14-18); METHEMOGLOBIN 0.6 % (0-3); MODE CMV; O2 CONTENT 14.5 VOL% (18-24); OPERATOR ID 23712; SAMPLE Arterial; TIDAL VOLUME 650 ML
[2017-01-25 12:47] LABS: BE (BASE EXCESS) -5.3 MEQ/L (0 +/- 2.5); CARBOXYHEMOGLOBIN 0.3 % (0-3); HCO3 (ACTUAL BICARBONATE) 19.4 MEQ/L (23-27); HEMOBLOGIN CONTENT 11.6 G/DL (14-18); INSTRUMENT SERIAL # 11843; METHEMOGLOBIN 0.6 % (0-3); O2 CONTENT 15.8 VOL% (18-24); PCO2 (CO2 TENSION) 35 MMHG (35-45); PO2 (O2 TENSION) 106 MMHG (79-93); pH 7.36 (7.37-7.43)
[2017-01-25 12:48] LABS: DEVICE Nasal Cannula 6L; OPERATOR ID 23712; SAMPLE Arterial
[2017-01-25 16:16] LABS: HEMATOCRIT 34.7 % (40.0-51.0); HEMOGLOBIN 10.9 g/dL (13.6-17.8)
[2017-01-26 06:27] LABS: BASOPHILS 0 %; BASOPHILS ABSOLUTE 0.01 10/3/uL (0.0-0.16); EOSINOPHILS 0 %; EOSINOPHILS ABSOLUTE 0.01 10/3/uL (0.0-0.53); HEMATOCRIT 31.7 % (40.0-51.0); HEMOGLOBIN 10.9 g/dL (13.6-17.8); IMMATURE GRANULOCYTES 0.4 %; IMMATURE GRANULOCYTES ABSOLUTE 0.08 10/3/uL (0.0-0.11); LYMPHOCYTES 6.9 %; LYMPHOCYTES ABSOLUTE 1.42 10/3/uL (0.67-4.30); MEAN CORPUS HGB CONC 34.4 g/dL (32.0-36.0); MEAN CORPUSCULAR HEMOGLOB 31.9 pg (26.0-34.0); MEAN CORPUSCULAR VOLUME 92.7 fL (80-100); MEAN PLATELET VOLUME 10.7 fL (9.2-13.0); MONOCYTES 10.1 %; MONOCYTES ABSOLUTE 2.07 10/3/uL (0.21-1.20); NEUTROPHILS 82.6 %; NEUTROPHILS ABSOLUTE 16.97 10/3/uL (2.02-8.40); PLATELET COUNT 189 10/3/uL (150-400); RBC DISTRIBUTION WIDTH 15.4 % (12.0-16.0); RED CELL COUNT 3.42 10/6/uL (4.7-6.1); WHITE BLOOD CELLS 20.6 10/3/uL (4.5-10.5)
[2017-01-26 06:29] LABS: MANUAL DIFF NO %
[2017-01-26 06:50] LABS: A/G RATIO 1.4 (0.7-1.9); ALBUMIN 3.8 G/DL (3.5-5.0); ALKALINE PHOSPHATASE 58 U/L (45-117); BUN (BLOOD UREA NITROGEN) 20 MG/DL (6-23); CALCIUM, SERUM 8.8 MG/DL (8.5-10.4); CHLORIDE, SERUM 110 MMOL/L (96-112); CO2 (CARBON DIOXIDE) 23 MMOL/L (24-34); CREATININE 1.21 MG/DL (0.70-1.30); GFR AFRICAN AMERICAN 69 ML/MIN (>=60); GFR NON AFRICAN AMERICAN 59 ML/MIN (>=60); GLOBULIN 2.7 G/DL (2.5-4.1); GLUCOSE, SERUM 150 MG/DL (60-99); POTASSIUM, SERUM 4.2 MMOL/L (3.5-5.3); SGOT(AST) 28 U/L (5-40); SGPT(ALT) 22 U/L (5-65); SODIUM, SERUM 140 MMOL/L (135-148); TOTAL BILIRUBIN 0.5 MG/DL (0-1.2); TOTAL PROTEIN 6.5 G/DL (6.0-8.5)
[2017-01-27 05:43] LABS: BASOPHILS 0.1 %; BASOPHILS ABSOLUTE 0.02 10/3/uL (0.0-0.16); EOSINOPHILS 0.4 %; EOSINOPHILS ABSOLUTE 0.06 10/3/uL (0.0-0.53); HEMATOCRIT 31.7 % (40.0-51.0); HEMOGLOBIN 10.9 g/dL (13.6-17.8); IMMATURE GRANULOCYTES 0.4 %; IMMATURE GRANULOCYTES ABSOLUTE 0.06 10/3/uL (0.0-0.11); LYMPHOCYTES 16.2 %; LYMPHOCYTES ABSOLUTE 2.57 10/3/uL (0.67-4.30); MEAN CORPUS HGB CONC 34.4 g/dL (32.0-36.0); MEAN CORPUSCULAR HEMOGLOB 31.6 pg (26.0-34.0); MEAN CORPUSCULAR VOLUME 91.9 fL (80-100); MEAN PLATELET VOLUME 10.2 fL (9.2-13.0); MONOCYTES ABSOLUTE 1.74 10/3/uL (0.21-1.20); NEUTROPHILS 71.9 %; NEUTROPHILS ABSOLUTE 11.44 10/3/uL (2.02-8.40); PLATELET COUNT 204 10/3/uL (150-400); RBC DISTRIBUTION WIDTH 15.1 % (12.0-16.0); RED CELL COUNT 3.45 10/6/uL (4.7-6.1); WHITE BLOOD CELLS 15.9 10/3/uL (4.5-10.5)
[2017-01-27 05:47] LABS: MANUAL DIFF NO %
[2017-01-27 05:57] LABS: CALCIUM, SERUM 8.7 MG/DL (8.5-10.4); CHLORIDE, SERUM 102 MMOL/L (96-112); CO2 (CARBON DIOXIDE) 25 MMOL/L (24-34); CREATININE 1.05 MG/DL (0.70-1.30); GFR AFRICAN AMERICAN 82 ML/MIN (>=60); GFR NON AFRICAN AMERICAN 71 ML/MIN (>=60); GLUCOSE, SERUM 133 MG/DL (60-99); POTASSIUM, SERUM 3.6 MMOL/L (3.5-5.3); SODIUM, SERUM 136 MMOL/L (135-148)
[2017-01-27 05:58] LABS: BUN (BLOOD UREA NITROGEN) 16 MG/DL (6-23)
[2017-01-28 04:56] LABS: BASOPHILS 0.2 %; BASOPHILS ABSOLUTE 0.02 10/3/uL (0.0-0.16); EOSINOPHILS 0.5 %; EOSINOPHILS ABSOLUTE 0.07 10/3/uL (0.0-0.53); HEMATOCRIT 30.7 % (40.0-51.0); HEMOGLOBIN 10.5 g/dL (13.6-17.8); IMMATURE GRANULOCYTES 0.5 %; IMMATURE GRANULOCYTES ABSOLUTE 0.06 10/3/uL (0.0-0.11); LYMPHOCYTES 18.2 %; LYMPHOCYTES ABSOLUTE 2.38 10/3/uL (0.67-4.30); MEAN CORPUS HGB CONC 34.2 g/dL (32.0-36.0); MEAN CORPUSCULAR HEMOGLOB 31.6 pg (26.0-34.0); MEAN CORPUSCULAR VOLUME 92.5 fL (80-100); MEAN PLATELET VOLUME 10.6 fL (9.2-13.0); MONOCYTES 8.5 %; MONOCYTES ABSOLUTE 1.12 10/3/uL (0.21-1.20); NEUTROPHILS 72.1 %; NEUTROPHILS ABSOLUTE 9.46 10/3/uL (2.02-8.40); PLATELET COUNT 218 10/3/uL (150-400); RBC DISTRIBUTION WIDTH 14.9 % (12.0-16.0); RED CELL COUNT 3.32 10/6/uL (4.7-6.1); WHITE BLOOD CELLS 13.1 10/3/uL (4.5-10.5)
[2017-01-28 04:57] LABS: MANUAL DIFF NO %
[2017-01-28 05:04] LABS: BUN (BLOOD UREA NITROGEN) 13 MG/DL (6-23); CALCIUM, SERUM 8.8 MG/DL (8.5-10.4); CHLORIDE, SERUM 106 MMOL/L (96-112); CO2 (CARBON DIOXIDE) 23 MMOL/L (24-34); CREATININE 1.04 MG/DL (0.70-1.30); GFR AFRICAN AMERICAN 83 ML/MIN (>=60); GFR NON AFRICAN AMERICAN 71 ML/MIN (>=60); GLUCOSE, SERUM 125 MG/DL (60-99); POTASSIUM, SERUM 3.7 MMOL/L (3.5-5.3); SODIUM, SERUM 141 MMOL/L (135-148)
[2017-01-29 05:52] LABS: BASOPHILS 0.2 %; BASOPHILS ABSOLUTE 0.02 10/3/uL (0.0-0.16); EOSINOPHILS 1.6 %; HEMOGLOBIN 10.8 g/dL (13.6-17.8); IMMATURE GRANULOCYTES 0.3 %; IMMATURE GRANULOCYTES ABSOLUTE 0.04 10/3/uL (0.0-0.11); LYMPHOCYTES 19.7 %; LYMPHOCYTES ABSOLUTE 2.41 10/3/uL (0.67-4.30); MANUAL DIFF NO %; MEAN CORPUS HGB CONC 33.8 g/dL (32.0-36.0); MEAN CORPUSCULAR HEMOGLOB 31.5 pg (26.0-34.0); MEAN CORPUSCULAR VOLUME 93.3 fL (80-100); MONOCYTES ABSOLUTE 0.98 10/3/uL (0.21-1.20); NEUTROPHILS 70.2 %; NEUTROPHILS ABSOLUTE 8.58 10/3/uL (2.02-8.40); PLATELET COUNT 272 10/3/uL (150-400); RBC DISTRIBUTION WIDTH 14.7 % (12.0-16.0); RED CELL COUNT 3.43 10/6/uL (4.7-6.1); WHITE BLOOD CELLS 12.2 10/3/uL (4.5-10.5)
[2017-01-30 04:18] LABS: HEMOGLOBIN 11.5 g/dL (13.6-17.8)
[2017-01-30 04:36] LABS: CHLORIDE, SERUM 107 MMOL/L (96-112); CO2 (CARBON DIOXIDE) 26 MMOL/L (24-34); GFR AFRICAN AMERICAN 87 ML/MIN (>=60); GFR NON AFRICAN AMERICAN 75 ML/MIN (>=60); GLUCOSE, SERUM 119 MG/DL (60-99); SODIUM, SERUM 141 MMOL/L (135-148)
[2017-01-30 04:37] LABS: BUN (BLOOD UREA NITROGEN) 18 MG/DL (6-23)
[2017-01-31 06:27] LABS: BASOPHILS 0.2 %; BASOPHILS ABSOLUTE 0.02 10/3/uL (0.0-0.16); EOSINOPHILS 1.9 %; EOSINOPHILS ABSOLUTE 0.23 10/3/uL (0.0-0.53); HEMATOCRIT 29.7 % (40.0-51.0); HEMOGLOBIN 10.4 g/dL (13.6-17.8); IMMATURE GRANULOCYTES 0.3 %; IMMATURE GRANULOCYTES ABSOLUTE 0.04 10/3/uL (0.0-0.11); LYMPHOCYTES 19.7 %; LYMPHOCYTES ABSOLUTE 2.38 10/3/uL (0.67-4.30); MEAN CORPUSCULAR HEMOGLOB 32.1 pg (26.0-34.0); MEAN CORPUSCULAR VOLUME 91.7 fL (80-100); MEAN PLATELET VOLUME 9.4 fL (9.2-13.0); MONOCYTES 9.5 %; MONOCYTES ABSOLUTE 1.14 10/3/uL (0.21-1.20); NEUTROPHILS 68.4 %; NEUTROPHILS ABSOLUTE 8.25 10/3/uL (2.02-8.40); PLATELET COUNT 342 10/3/uL (150-400); RED CELL COUNT 3.24 10/6/uL (4.7-6.1); WHITE BLOOD CELLS 12.1 10/3/uL (4.5-10.5)
[2017-01-31 06:37] LABS: MANUAL DIFF NO %
[2017-01-31 06:39] LABS: BUN (BLOOD UREA NITROGEN) 16 MG/DL (6-23); CALCIUM, SERUM 8.9 MG/DL (8.5-10.4); CHLORIDE, SERUM 106 MMOL/L (96-112); CO2 (CARBON DIOXIDE) 24 MMOL/L (24-34); CREATININE 1.03 MG/DL (0.70-1.30); GFR AFRICAN AMERICAN 84 ML/MIN (>=60); GFR NON AFRICAN AMERICAN 72 ML/MIN (>=60); GLUCOSE, SERUM 116 MG/DL (60-99); POTASSIUM, SERUM 3.7 MMOL/L (3.5-5.3); SODIUM, SERUM 140 MMOL/L (135-148)
[2017-01-31] MEDS ORDERED: NORCO1 TAB PO (10:55)
[2017-01-31] MEDS ORDERED: HALF81 PO (10:56)
[2017-01-31] MEDS ORDERED: NORV10 PO (10:56)
[2017-01-31] MEDS ORDERED: COREG3 PO (10:57)
[2017-01-31] MEDS ORDERED: LIPITOR40 PO (10:57)
[2017-01-31] MEDS ORDERED: PLAVIX PO (10:58)
[2017-01-31] MEDS ORDERED: MUCINEX600 MG PO ×2 (10:59→11:01)
[2017-01-31] MEDS ORDERED: PRIN5 PO (11:01)
[2017-01-31] MEDS ORDERED: MVI PO (11:02)
[2017-01-31] MEDS ORDERED: PROTONIX PO (11:02)
[2017-01-31] MEDS ORDERED: SENTAB PO (11:03)
[2017-01-31] MEDS ORDERED: FLOMAX4 PO (11:04)
== END 2017-01-31 13:30 | disposition home or self-care (01) | DRG 233 ==
LOC: CORLMH 10:57 → SSU1 12:10 → 5NO 18:09 → SDC/OF 01-24 13:26 → CVICU 01-24 17:53 → 5NO 01-25 15:02
PROVIDERS: Internal Medicine; Internal Medicine Cardiovascular Disease; Internal Medicine Nephrology; Student in an Organized Health Care Education/Training Program; Thoracic Surgery (Cardiothoracic Vascular Surgery)
PROC: 4A023N7 Measurement of Cardiac Sampling and Pressure, Left Heart, Percutaneous Approach (ICD-10-PCS; principal; 2017-01-20)
PROC: B2111ZZ Fluoroscopy of Multiple Coronary Arteries using Low Osmolar Contrast (ICD-10-PCS; 2017-01-20)
PROC: 021309W Bypass Coronary Artery, Four or More Arteries from Aorta with Autologous Venous Tissue, Open Approach (ICD-10-PCS; 2017-01-20)
PROC: 0210099 Bypass Coronary Artery, One Artery from Left Internal Mammary with Autologous Venous Tissue, Open Approach (ICD-10-PCS; 2017-01-20)
PROC: B2151ZZ Fluoroscopy of Left Heart using Low Osmolar Contrast (ICD-10-PCS; 2017-01-20)
PROC: 06BQ4ZZ Excision of Left Saphenous Vein, Percutaneous Endoscopic Approach (ICD-10-PCS; 2017-01-24)
PROC: 03CN0Z6 (ICD-10-PCS; 2017-01-24)
PROC: 03UL0JZ Supplement Left Internal Carotid Artery with Synthetic Substitute, Open Approach (ICD-10-PCS; 2017-01-24)
PROC: 06BP4ZZ Excision of Right Saphenous Vein, Percutaneous Endoscopic Approach (ICD-10-PCS; 2017-01-24)
PROC: 5A1221Z Performance of Cardiac Output, Continuous (ICD-10-PCS; 2017-01-24)
PROC: B246ZZ4 Ultrasonography of Right and Left Heart, Transesophageal (ICD-10-PCS; 2017-01-24)
DX: I21.4 Non-ST elevation (NSTEMI) myocardial infarction (principal); I50.21 Acute systolic (congestive) heart failure; J96.01 Acute respiratory failure with hypoxia; I13.0 Hypertensive heart and chronic kidney disease with heart failure and stage 1 through stage 4 chronic kidney disease, or unspecified chronic kidney disease; E11.22 Type 2 diabetes mellitus with diabetic chronic kidney disease; E11.42 Type 2 diabetes mellitus with diabetic polyneuropathy; I65.22 Occlusion and stenosis of left carotid artery; N18.3 Chronic kidney disease, stage 3 (moderate); J44.9 Chronic obstructive pulmonary disease, unspecified; E78.5 Hyperlipidemia, unspecified; F17.210 Nicotine dependence, cigarettes, uncomplicated; Z79.1 Long term (current) use of non-steroidal anti-inflammatories (NSAID); Z79.84 Long term (current) use of oral hypoglycemic drugs; Z79.899 Other long term (current) drug therapy; I25.10 Atherosclerotic heart disease of native coronary artery without angina pectoris; E11.65 Type 2 diabetes mellitus with hyperglycemia; E78.00 Pure hypercholesterolemia, unspecified
CPT/HCPCS: 31720; 36415; 71010; 71020; 74000; 76775; 80048; 80053; 80061; 80069; 80076; 81001; 82043; 82330; 82550; 82553; 82570; 82607; 82746; 82803; 82805; 82947; 82962; 83036; 83605; 83735; 83880; 83970; 84100; 84132; 84145; 84155; 84165; 84295; 84300; 84439; 84443; 84484; 85014; 85018; 85025; 85049; 85347; 85610; 85730; 86850; 86900; 86901; 86920; 87040; 87449; 87641; 87804; 88304; 88311; 93005; 93306; 93312; 93320; 93325; 93458; 93880; 93975; 94002; 94640; 94660; 94770; 96374; 96375; 99152; 99291; A9270-GY; C1713; C1769; C1887; C1894; J0456; J0690; J1644; J1940; J2150; J2250; J2370; J2440; J2720; J2765; J2795; J2930; J3010; J3475; J3480; P9045; P9047; Q9967